=== PATIENT | female | born 1955 | race Caucasian/White ===

== ENCOUNTER 2025-02-09 08:08 | Inpatient (IN) ==
--- NOTE | 2025-01-23 11:18 | PAT Medication Instructions ---
Medication Instructions Date of Service January 23, 2025 Home Medications coenzyme Q10 100 mg capsule (CoQ-10) 100 mg PO QAM ascorbic acid (vitamin C) 1,000 mg tablet (Vitamin C) 1 g PO QAM biotin 5,000 mcg disintegrating tablet 5,000 mcg PO QAM calcium carbonate 1,000 mg PO QAM cholecalciferol (vitamin D3) 125 mcg (5,000 unit) tablet (Vitamin D3) 5,000 unit PO QAM magnesium 250 mg tablet 400 mg PO QAM vitamin K2 100 mcg capsule 100 mcg PO QAM zinc 50 mg tablet 50 mg PO QAM Lactobacillus acidophilus 10 billion cell capsule (Probiotic) 10,000 mmu cells PO DAILY Igor Support 1 tab PO DAILY levothyroxine 100 mcg tablet 100 mcg PO QAM fzyeuoxq-[id number] 18 mg-FA 400 mcg-calcium 500 mg-vit K 50 mcg tablet (Women's Multivitamin) 1 tab PO QAM omega 7-txd-gzk-fish oil 900 mg-1,400 mg capsule,delayed release 1 cap PO QAM spironolactone 25 mg tablet 25 mg PO QAM STOP taking 2 weeks before surgery (or as soon as possible if surgery is within 2 weeks) coenzyme Q10 100 mg capsule (CoQ-10) 100 mg PO QAM omega 7-vho-cfh-fish oil 900 mg-1,400 mg capsule,delayed release 1 cap PO QAM Igor Support 1 tab PO DAILY vitamin K2 100 mcg capsule 100 mcg PO QAM biotin 5,000 mcg disintegrating tablet 5,000 mcg PO QAM DO NOT take the morning of surgery ascorbic acid (vitamin C) 1,000 mg tablet (Vitamin C) 1 g PO QAM calcium carbonate 1,000 mg PO QAM cholecalciferol (vitamin D3) 125 mcg (5,000 unit) tablet (Vitamin D3) 5,000 unit PO QAM magnesium 250 mg tablet 400 mg PO QAM zinc 50 mg tablet 50 mg PO QAM Lactobacillus acidophilus 10 billion cell capsule (Probiotic) 10,000 mmu cells PO DAILY wiyabgqz-euf-annp 18 mg-FA 400 mcg-calcium 500 mg-vit K 50 mcg tablet (Women's Multivitamin) 1 tab PO QAM spironolactone 25 mg tablet 25 mg PO QAM Take morning of surgery With a small sip of water, OTHERWISE NOTHING TO EAT OR DRINK AFTER MIDNIGHT: levothyroxine 100 mcg tablet 100 mcg PO QAM Other Notes If you have any questions please call us at [phone] or [phone] or [phone] or [phone]
--- NOTE | 2025-01-25 12:28 | Anesthesiology Consultation ---
Date of Service January 25, 2025 Assessment & Plan (1) Encounter for pre-operative examination: Chart Review Chart Review: Acceptable Risk for Surgery (pending surgeon ordered PCP clearance and cardio optimization visit ) and Patient seen in Pre Admission Testing - Awaiting PCP clearance 01/31/25 (Renée COKER-- [facility]) - Awaiting cardio optimization office visit (Citlalli Novak [facility] Cardio)- scheduled 02/03/25 845 Pt currently scheduled as 23 hours observation. If surgeon decides to change patient to Same Day Joint, patient would be acceptable risk for VERITO, pending patient is motivated, has good support and surgeon's office completes Same Day Joint Program preop requirements. Per PAT appt on 01/25/25, no recent illness/disease exposures, illness related symptoms, or recent illness/disease positive tests. Will leave to surgeon's discretion if preop Covid testing needed Hysteroscopy, D&C 10/17/22= Done under [place] with LMA #4 x 1 attempt. Atraumatic/good seal Consults Requested cardiac (due to abnormal EKG ) Teaching & Discussion Pre-Anesthesia Teaching/Discussion Notes: Instructed NPO after midnight before surgery,except medications with 15 cc of water. Medication instructions provided according to the PAT guidelines. History Surgery Operation Date: 02/09/25 09:10 Proposed Procedures p Right Total Hip Arthroplasty - Nahun Sauer MD Height/Weight Height: 5 ft 8 in Weight: 68.3 kg Allergies Allergy/AdvReac Type Severity Reaction Status Date / Time nickel Allergy Unknown see below Verified 01/25/25 12:20 doxycycline AdvReac Mild Gastrointestinal Verified 01/19/25 14:05 Upset Additional Notes: Surgeon's office notified of nickel allergy Medications Home Medications Medication Instructions Recorded Confirmed Last Taken coenzyme Q10 100 mg capsule 100 mg PO QAM 07/19/19 01/19/25 10/03/22 12:00 (CoQ-10) ascorbic acid (vitamin C) 1,000 mg 1 g PO QAM 10/03/22 01/19/25 10/03/22 09:00 tablet (Vitamin C) biotin 5,000 mcg disintegrating 5,000 mcg PO QAM 10/03/22 01/19/25 10/03/22 09:00 tablet calcium carbonate 1,000 mg PO QAM 10/03/22 01/19/25 10/03/22 16:00 cholecalciferol (vitamin D3) 125 5,000 unit PO QAM 10/03/22 01/19/25 10/03/22 09:00 mcg (5,000 unit) tablet (Vitamin D3) magnesium 250 mg tablet 400 mg PO QAM 10/03/22 01/19/25 10/03/22 10:00 vitamin K2 100 mcg capsule 100 mcg PO QAM 10/03/22 01/19/25 10/03/22 16:00 zinc 50 mg tablet 50 mg PO QAM 10/03/22 01/19/25 10/03/22 09:00 Lactobacillus acidophilus 10 10,000 mmu cells PO DAILY 01/19/25 01/19/25 Unknown billion cell capsule (Probiotic) Igor Support 1 tab PO DAILY 01/19/25 01/19/25 Unknown levothyroxine 100 mcg tablet 100 mcg PO QAM 01/19/25 01/19/25 Unknown uulyiqow-mbv-yxwe 18 mg-FA 400 1 tab PO QAM 01/19/25 01/19/25 Unknown mcg-calcium 500 mg-vit K 50 mcg tablet (Women's Multivitamin) omega 6-hsw-lqe-fish oil 900 1 cap PO QAM 01/19/25 01/19/25 Unknown mg-1,400 mg capsule,delayed release spironolactone 25 mg tablet 25 mg PO QAM 01/19/25 01/19/25 Unknown Past Medical History Medical History Chronic neck pain Intermittent/very occ- loss of lordosis curve of neck due to previous injury Glaucoma - had sx for (11/2024) > considered to be chronic but eye pressures have been stable History of COVID-19 03/30/2022-- (patient does not feel she had Covid) diagnosed @ [facility]--mild symptoms, no symptoms now Hyperparathyroidism s/p surgical intervention in [place] Hypothyroid Osteoarthritis Osteopenia Exercise / Class Metabolic Activity II 4-5 Yardwork/Stairs/Walk up hill (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 ) Past Family History Family History Father Lymphoma Other No family history of adverse response to anesthesia Denies family history of Ovarian cancer Breast cancer Past Surgical History Surgical History H/O breast biopsy 2022 > benign History of appendectomy History of bone graft left lower side of mouth History of breast augmentation placed 2006/removed 2016 History of colonoscopy History of dental surgery multiple times--nothing removable History of gynecological procedure polyps removed History of left hip replacement History of parathyroid surgery benign nodules removed History of [place] cell [place] [facility] [place] to right hip/bilt shoulders/neck Hx of cataract surgery bilat Hx of eye surgery TISHA sx for glaucoma Past Anesthesia History No Hx of Anesthesia Complications and No Family Hx of Anesthesia Complications (Father family history unknown ) History of PONV No Hx of PONV and No Hx of Motion Sickness Social History Smoking Status: Former smoker Do You Dip or Chew Tobacco: No Smoking End Date: 1997 (smoked x 20 years) Hx Alcohol Use: Yes alcohol intake frequency: holidays/special occasions only Hx Substance Use: No substance use type: does not use Review of Systems Patient denies chest pain, shortness of breath, dyspnea on exertion, reflux, cough, wheezing, palpitations. No hx of seizures, stroke, MT, apnea/snoring. No hx of blood clots or blood transfusions Physical Exam Vital Signs VITALS BP 105/72 P 62 TEMP 97.6 SP02 94% RESP 16 Constitutional no acute distress ENMT Mouth: no TMJ clicking Thyromental Distance: < 3.5 Finger Breadths (3.0) Mallampati Class: I Upper partial denture Permanent bridge to bottom front Crowns to bottom teeth Neck + limited neck extension (mild) Respiratory normal respiratory effort; no respiratory distress Auscultation: lungs clear to auscultation bilaterally; no wheezes Cardiovascular Rate/Rhythm: regular rate and regular rhythm Heart Sounds: no murmur Vessels: no carotid bruit Musculoskeletal Spine: no pain with cervical ROM Extremities: extremities normal to inspection Psychiatric Orientation: alert Lab Results Anesthesia Preop Results Results Anesthesia Widget: WBC 9.67 K/ul (4.8-10.8) 01/25/25 Hgb 14.9 g/dl (12.0-16.0) 01/25/25 Hct 44.7 % (37.0-47.0) 01/25/25 Plt 417 K/uL (130-400) H 01/25/25 Na 140 mmol/L (136-145) 01/25/25 K 4.5 mmol/L (3.5-5.1) 01/25/25 Cl 105 mmol/L (98-107) 01/25/25 CO2 30 mmol/L (21-32) 01/25/25 BUN 17 mg/dl (6-23) 01/25/25 Creat 0.75 mg/dl (0.6-1.2) 01/25/25 Glucose Level 85 mg/dl (70-99(Fasting)) 01/25/25 PT 10.1 Seconds (9.0-12.0) 01/25/25 PTT 29 Seconds (21-31) 01/25/25 INR 0.9 (0.9-1.1) 01/25/25 Urine Color Yellow 01/25/25 Urine Appearance Cloudy (Clear) A 01/25/25 Urine pH 7.5 (4.5-7.5) 01/25/25 Urine Specific [place] 1.014 (1.000-1.030) 01/25/25 Urine Protein Negative (Negative) 01/25/25 Urine Glucose (UA) Negative (Negative) 01/25/25 Urine Ketones Negative (Negative) 01/25/25 Urine Blood Negative (Negative) 01/25/25 Urine Nitrite Negative (Negative) 01/25/25 Urine Bilirubin Negative (Negative) 01/25/25 Urine Urobilinogen Negative (Negative) 01/25/25 Urine Leukocyte Esterase 2+ (Negative) H 01/25/25 Urine WBC (Auto) 6-10 /hpf (0-5) H 01/25/25 Urine RBC (Auto) 6-10 /hpf (0-2) H 01/25/25 Urine Hyaline Casts (Auto) 0-2 /lpf (0-2) 01/25/25 Urine Epithelial Cells (Auto) 0-2 /hpf (0-2) 01/25/25 Urine Bacteria (Auto) None Seen (None Seen) 01/25/25 Blood Type O Positive 01/25/25 Antibody Screen NEGATIVE 01/25/25 Testing Electrocardiogram Date: 01/25/25 Findings: + SB @ (52bpm) Nonspecific T wave abnormality When compared to EKG from October 17, 2022- vent rate has decreased by 37bpm, T wave inversion now evident in anterior leads per cardio ( Discussed preop EKG with Dr Kelly- recommended patient have cardiac evaluation)
[~2025-02-09 08:08] MED LIST: BUPIVACAINE 0.5 % 5 MG/1 ML PF 10ML VIAL ONE
[2025-02-09] MEDS: LR 60ML/HR IV SCH (08:50)
[2025-02-09] MEDS: LR 500ML BOLUS, THEN 15ML/HR IV SCH (08:50)
[2025-02-09] MEDS: ACETAMINOPHEN 500 MG TAB PO SCH ×2 (08:52→14:17)
[2025-02-09] MEDS: dexAMETHasone**PF** 10 MG/ML VIAL IV SCH (08:52)
[2025-02-09] MEDS: FAMOTIDINE 20 MG TAB PO SCH (08:52)
[2025-02-09] MEDS: CeleBREX 200 MG CAP PO SCH (08:52)
[2025-02-09] MEDS ORDERED: PROPOFOL IV EMULSION 10 MG/ML 100 ML VIAL IV ONE (09:43)
[2025-02-09] MEDS ORDERED: MIDAZOLAM HCL 1 MG/ML 2ML VIAL ONE (09:48)
[2025-02-09] MEDS ORDERED: LIDOCAINE 2% 2 ML VIAL/AMP(20MG/ML) INFIL ONE (09:49)
--- NOTE | 2025-02-09 10:13 | History & Physical Bridge Note ---
Date of Service February 09, 2025 History & Physical Bridge Note I have examined the patient, reviewed the History & Physical and in the interval since the performance of the History & Physical I have noted the following changes of clinical significance: no changes noted
[2025-02-09] MEDS: TRANEXAMIC ACID 1,000 MG **IV Pre-op IV SCH (10:15)
[2025-02-09] MEDS ORDERED: ePHEDrine sulfate 50 MG/5 ML SYR ONE (11:00)
[2025-02-09] MEDS: ORTHO JOINT ANESTHETIC ONE (11:03)
[2025-02-09] MEDS ORDERED: PHENYLEPHRINE 100MCG/ML 5ML SYR ONE ×2 (11:04→11:51)
[2025-02-09] MEDS ORDERED: ONDANSETRON INJ 2 MG/ML 2 ML VIAL ONE (11:04)
[2025-02-09] MEDS: ROPIV 0.5% 246mg, Ketorolac 30mg, EPINEPHrine 0.5mg in NSS INFIL SCH (11:40)
--- NOTE | 2025-02-09 12:12 | Operative Report ---
Post Operative Report Pre & Post Diagnosis Operation Date: 02/09/25 10:00 Pre-Op Diagnosis: Osteoarthritis Hip Right Post-Op Diagnosis: Osteoarthritis Hip Right I identified the patient and participated in the time-out.: Yes Procedure Operation Date: 02/09/25 10:00 Actual Procedures p Right Total Hip Arthroplasty(Right) - Nahun Sauer MD Surgeon Nahun Sauer MD Recreational Leader Ann Marie Mack PA-Kacy Estimated Blood Loss 100 Findings Consistent with Post-Op Diagnosis Specimens femoral head Description of Procedure I was present during the entire case assisting with positioning, prepping, draping, wound retraction, wound closure, dressing and abduction pillow placement. No fellow present. Please see Dr. Sauer procedure note for specifics of the case. I attest to the content of the Intraoperative Record and any orders documented therein. Any exceptions are noted below.
[2025-02-09] MEDS ORDERED: METOCLOPRAMIDE HCL INJ 5 MG/ML 2 ML VIAL IV PRN (12:15)
[2025-02-09] MEDS ORDERED: ALUMINUM/MAGNESIUM SUSP 30 ML UDC PO PRN (12:15)
[2025-02-09] MEDS ORDERED: NALOXONE HCL 0.4 MG/1 ML VIAL/CARP IV PRN (12:15)
[2025-02-09] MEDS ORDERED: diphenhydrAMINE 50 MG/ML VIAL IV PRN (12:15)
[2025-02-09] MEDS ORDERED: HYDROmorphone INJ 0.5 MG/0.5 ML SYR IV PRN (12:15)
[2025-02-09] MEDS ORDERED: MAGNESIUM HYDROXIDE SUSP 30 ML UDC PO PRN (12:15)
--- NOTE | 2025-02-09 12:15 | Operative Report ---
Post Operative Report Pre & Post Diagnosis Operation Date: 02/09/25 10:00 Pre-Op Diagnosis: Osteoarthritis Hip Right Post-Op Diagnosis: Osteoarthritis Hip Right I identified the patient and participated in the time-out.: Yes Procedure Operation Date: 02/09/25 10:00 Actual Procedures p Right Total Hip Arthroplasty(Right) - Nahun Sauer MD Surgeon Nahun Sauer MD Funeral Professional BLAIR Mack PA-C. No resident or fellow was available to assist. Estimated Blood Loss 100 Findings Consistent with Post-Op Diagnosis Specimens Right femoral head Anesthesia Type Spinal MAC Complications none Disposition Disposition: Recovery Room Indications 69-year-old female, with right hip osteoarthritis refractory to conservative management. Patient is an active yoga enthusiast but is having difficulty doing this as well as her activities of daily living. She has previously undergone a left total hip arthroplasty at an outside hospital with good result. X-rays demonstrate joint space narrowing subchondral sclerosis and marginal osteophy blanca. She was noted to have osteoporosis which increases the risk of fracture. Finally, the right leg was noted preoperatively to be a little longer than the left leg. I had a long discussion with the patient about the risks and benefits of surgery, alternatives to surgery, and expected outcomes. She understood that we would try to keep her right leg around the same length as it was preoperativ kaleb she is since she had no complaints with her current leg lengths. She also understands that certain yoga positions place her at increased risk of postoperative hip dislocation. After reviewing all of her options she elected to proceed with surgery. All questions were answered. Informed consent was signed. Description of Procedure Patient was identified in the preoperative holding area where the surgical site, right hip, was marked. A spinal anesthetic was placed, then the patient was brought back to the main operating room, placed in the operating table and moved into the lateral decubitus position. Axillary roll was placed. All bony prominences were padded. Perioperative antibiotics and tranexamic acid 1 gram IV were administered. The operative extremity was prepped and draped in the normal sterile fashion. Prior to incision a multidisciplinary timeout was called. All in the room were in agreement. We began by making an incision for a posterior approach to the hip. We dissected down through subcutaneous tissues to the level of the fascia. The fascia was incised in line with the incision. Charnley bow was placed. Fatty tissue was reflected posteriorly off the back of the greater trochanter to expose the piriformis and short external rotators of the hip. Quadratus femoris was taken off the femur subperiosteally. The piriformis and short external rotators were dissected off the posterior aspect of the hip. A box cut was made in the capsule. Inferior hip capsule was released off the femur. The femoral head was dislocated. The distance between the center of the head and a Bovie kelli placed on the intertrochanteric line was measured at 48 mm to determine her wilton offset. The femoral neck cut was made at our preoperative template. The acetabulum was then exposed. The labrum was sharply excised. Contents of the cotyloid fossa were removed with electrocautery. We then began reaming at a size 8 mm less than our preoperative template. We reamed up by 1 [address] the way up to a size 56 mm cup. This gave us good bleeding cancellus bone circumferentially. The acetabulum was then irrigated out and dried. The real [place] Gription cup was then impacted down into position with 45 degrees of lateral opening and 25 degrees of anteversion. Two cancellous bone screws were placed up into the ilium. Excellent fixation was obtained. A trial liner for a 36 mm femoral head was then placed. Next we turned our attention to the femur. The lateral neck was removed with a box osteotome. Intramedullary guide was used to establish the intramedullary canal. We then broached all the way up to a size 6. We began trialing with a standard offset neck and a +5 head. Distance between the Bovie kelli and the center of the trial measured 48 indicating anatomic sabianist of her offset. Hip was reduced. Leg length was the same as it was preoperatively. The hip was stable in extension and external rotation, and stable in the sleeper position. At 90 degrees of hip flexion the hip could be internally rotated 40 degrees before levering out of the cup. Because of the patient's yoga activities I wanted to get better stability to decrease her risk of postoperative dislocation. Therefore I elected to use a dual mobility component. The hip was dislocated and the femoral trial was removed. The acetabulum was re-exposed, and the trial liner was removed. [place] hole eliminator screw was placed. The metal liner for the dual mobility construct was opened up and impacted into the acetabulum. Excellent fixation was obtained. The femur was re-exposed. The femoral canal was irrigated and dried. The real Actis femoral stem was opened up. This was impacted down into position. The bipolar femoral head was opened up, assembled on the back table, then gently impacted down onto the trunnion. The hip was atraumatically reduced. Another 1 gram of IV tranexamic acid was started prior to closure. The wound was irrigated out with sterile Betadine solution. The periarticular injection cocktail was then placed. The short external rotators, piriformis, and posterior capsule were repaired through drill holes in the greater trochanter using #2 Vicryl. The fascia was run with a looped #1 PDS. The subcutaneous layer was closed with #1 PDS. The dermal layer was closed with 2-0 Vicryl. Zip line was used for the skin followed by a Silverlon dressing. A compressive dressing was then placed. The patient was then rolled supine. Leg lengths were rechecked and were symmetric. An abduction pillow was placed. Sedation was lifted and the patient was transferred to the recovery room in stable condition. Summary of implants: Depuy [place] Gription Acetabular Shell Sector Cup, 56 mm outer diameter [place] Cancellous bone screws, 6.5 x 35 and 25 mm [place] hole eliminator [place] dual mobility liner 56/49 DePuy Actis collared cementless Femoral stem, 12/14 taper, size 6 standard offset 49/28 by mentum Ultrex polyethylene outer dual mobility head 28 mm ceramic femoral head with +5 offset Postoperative course: Patient will be admitted overnight from the recovery room. Patient will be weightbearing as tolerated with posterior hip precautions. Aspirin for DVT prophylaxis I attest to the content of the Intraoperative Record and any orders documented therein. Any exceptions are noted below.
--- NOTE | 2025-02-09 12:37 | XRay Report ---
XR pelvis 1-2V routine CLINICAL HISTORY: In PACU - Post Surgical COMPARISON: 01/25/2025 FINDINGS: Bilateral hip prostheses show no hardware complication. There is expected soft tissue gas on the right. IMPRESSION: Unremarkable postoperative exam. ACT 112: Negative or not required by law. Electronically signed by: Tobi Orlando M.D. 02/09/2025 12:36 PM
[2025-02-09] MEDS ORDERED: ATROPINE SULFATE 0.1 MG/ML 10ML SYR IV PRN (12:50)
--- NOTE | 2025-02-09 13:22 | Anesthesiology Progress Note ---
Date of Service February 09, 2025 Anesthesia Post Procedure Vital Signs Vital Signs: Temp Pulse Resp BP Pulse Ox O2 Del Method 02/09/25 13:10 93 H 20 95/63 L 94 Room Air 02/09/25 13:00 95 H 18 101/64 94 Room Air 02/09/25 12:50 36.3 C L 95 H 20 112/65 95 Room Air 02/09/25 12:40 90 21 112/65 91 Room Air 02/09/25 12:30 93 H 20 102/62 94 Room Air 02/09/25 12:20 97 H 25 H 89/63 L 95 Room Air 02/09/25 12:12 36.0 C L 100 H 22 95/65 L 95 Room Air 02/09/25 08:32 36.6 C 83 20 107/71 93 Room Air Pain Intensity Right Hip: Pain Intensity: 3 Transfer of Care Handoff Completed per policy Notes Mental Status: alert / awake / arousable Patient Amnestic to Procedure: Yes Nausea / Vomiting: adequately controlled Pain: adequately controlled Airway Patency, RR, SpO2: stable & adequate BP & HR: stable & adequate Hydration State: stable & adequate Anesthetic Complications: no major complications apparent
--- NOTE | 2025-02-09 13:23 | Anesthesiology Progress Note ---
Date of Service February 09, 2025 Anesthesia Post Procedure Vital Signs Vital Signs: Temp Pulse Resp BP Pulse Ox O2 Del Method 02/09/25 13:20 87 16 103/55 L 93 Room Air 02/09/25 13:10 93 H 20 95/63 L 94 Room Air 02/09/25 13:00 95 H 18 101/64 94 Room Air 02/09/25 12:50 36.3 C L 95 H 20 112/65 95 Room Air 02/09/25 12:40 90 21 112/65 91 Room Air 02/09/25 12:30 93 H 20 102/62 94 Room Air 02/09/25 12:20 97 H 25 H 89/63 L 95 Room Air 02/09/25 12:12 36.0 C L 100 H 22 95/65 L 95 Room Air 02/09/25 08:32 36.6 C 83 20 107/71 93 Room Air Pain Intensity Right Hip: Pain Intensity: 3 Transfer of Care Handoff Completed per policy Notes Mental Status: alert / awake / arousable Patient Amnestic to Procedure: Yes Nausea / Vomiting: adequately controlled Pain: adequately controlled Airway Patency, RR, SpO2: stable & adequate BP & HR: stable & adequate Hydration State: stable & adequate Neuraxial Anesthesia: was administered and sensory block is resolving Anesthetic Complications: no major complications apparent
[2025-02-09] MEDS: SODIUM CHLORIDE 0.9% 1,000 ML IV SCH (13:45)
[2025-02-09] MEDS: KETOROLAC TROMETHAMINE 15 MG/ML VIAL IV SCH (14:17)
[2025-02-09] MEDS ORDERED: Scopolamine CHECK PATCH PLACEMENT SCH (16:00)
[2025-02-09] MEDS: SENNA 8.6 MG TAB PO SCH (20:56)
[2025-02-09] MEDS: DOCUSATE SODIUM 100 MG CAP PO SCH (20:56)
[2025-02-09] MEDS: ONDANSETRON INJ 2 MG/ML 2 ML VIAL IV PRN (21:40)
[2025-02-09 22:59] VITALS: RESP 16
[2025-02-10] MEDS: LEVOTHYROXINE SODIUM 100 MCG TABLET PO SCH (05:49)
[2025-02-10 06:08] LABS: Hematocrit (blood only) 34.8 % (37.0-47.0); Hemoglobin 11.6 g/dl (12.0-16.0); Immature Granulocytes # (auto) 0.07 K/uL (0.01-0.20); Immature Granulocytes % (auto) 0.5 %; Mean Corpuscular Hemoglobin 30.4 pg (25.0-34.0); Mean Corpuscular Volume 91.3 fL (80.0-100.0); Platelet Count 325 K/uL (130-400); RDW Standard Deviation 43.8 fL (36.4-46.3); Red Blood Count 3.81 M/uL (4.20-5.40); White Blood Count 12.88 K/ul (4.8-10.8)
[2025-02-10 06:25] LABS: Anion Gap 8.0 (3-11); Blood Urea Nitrogen 18.0 mg/dl (6-23); Calcium 9.2 mg/dl (8.6-10.3); Carbon Dioxide 24.0 mmol/L (21-32); Chloride 107.0 mmol/L (98-107); Creatinine Clr Calc Pharmacy 65.3 ml/min; Glucose 107.0 mg/dl (70-99(Fasting)); Potassium 4.2 mmol/L (3.5-5.1); Sodium 139.0 mmol/L (136-145)
[2025-02-10] MEDS: dexAMETHasone 10 MG in SYRINGE 0 ML IV SCH (08:08)
[2025-02-10] MEDS: ADVANCED PROBIOTIC 625 MG CAPSULE PO SCH (08:10)
[2025-02-10] MEDS: CALCIUM CARBONATE 1250MG TAB PO SCH (08:10)
[2025-02-10] MEDS: ZINC SULFATE 220 MG CAPSULE PO SCH (08:11)
[2025-02-10] MEDS: CEROVITE ADV FORMULA TAB PO SCH (08:11)
[2025-02-10] MEDS: CHOLECALCIFEROL 125 MCG (5,000 UNITS) TAB PO SCH (08:11)
[2025-02-10] MEDS: OMEGA-3 (PURIFIED FISH OIL) 1 GM CAP PO SCH (08:11)
[2025-02-10] MEDS: ASCORBIC ACID 500 MG TAB PO SCH (08:11)
[2025-02-10] MEDS: MULTIVITAMIN TAB PO SCH (08:11)
[2025-02-10] MEDS: ASPIRIN 81 MG ECTAB PO SCH (08:12)
[2025-02-10] MEDS: SPIRONOLACTONE 25 MG TAB PO SCH (08:12)
[2025-02-10] MEDS: MAGNESIUM OXIDE 400 MG TAB PO SCH (08:12)
[2025-02-10] MEDS ORDERED: [UNRECOGNIZED DRUG - OTHER] PO SCH (09:00)
[2025-02-10] MEDS ORDERED: VITAMIN A PO SCH (09:00)
[2025-02-10] MEDS ORDERED: NON-FORMULARY MEDICATION (Vitamin K2 100 mcg Capsule) PO SCH (09:00)
--- NOTE | 2025-02-10 10:03 | Orthopedic Progress Note ---
Date of Service February 10, 2025 Assessment & Plan (1) S/P total hip arthroplasty: Plan: Total hip precautions reviewed Weightbearing as tolerated with walker assistance Abduction pillow use x 6 weeks Ice with easy wrap Keep Silverlon dressing in place Pain control with p.o. medication DVT prophylaxis with aspirin and YOANNA stockings PT/OT Plan is to discharge home after lunch today with outpatient physical therapy beginning on Thursday Follow-up at [facility] orthopedics as previously scheduled With questions contact our clinic at [phone] Admission and Anticipated Discharge Date Admission Date: February 09, 2025 Subjective This 69-year-old female is day 1 status post right total hip arthroplasty. Patient states she is doing very well. She states her pain is effectively controlled with the p.o. pain medication. She states that she does get a little discomfort when she gets up to use the restroom but while laying in bed has no pain. Patient denies chest pain, shortness of breath, fever, chills, sweats, nausea, vomiting, diarrhea, difficulty voiding or numbness or tingling in the right lower extremity. She states that she is doing outpatient physical therapy starting Thursday in our clinic. Review of Systems Review of Systems: All systems reviewed & are unremarkable except as noted in Subjective Physical Exam Physical Exam: Right hip: Outer dressing was removed. Silverlon is clean dry and intact and left in place. Patient is able to perform active straight leg raise test. She is able to actively dorsi and plantarflex her foot without issue. Her quad strength is 3+ out of 5. She tolerates passive hip flexion beyond 80 degrees. She does feel slight pulling sensation with internal rotation but no discomfort with passive external rotation. Logroll test negative. Patient is neurovascularly intact in the right lower extremity and easily able to transition from a seated to a standing position with the assistance of her walker. Results & Data Vital Signs (Past 12 Hours) Vital Signs Temp Pulse Pulse Resp BP Pulse Ox O2 Del Method 02/10/25 07:41 36.4 C L 78 16 112/71 98 Room Air 02/10/25 02:54 36.6 C 74 16 114/71 95 Room Air 02/09/25 22:58 36.4 C L 89 16 103/67 96 Room Air Diagnostic Findings Laboratory Results WBC 12.88 K/ul (4.8-10.8) H 02/10/25 05:29 RBC 3.81 M/uL (4.20-5.40) L 02/10/25 05:29 Hgb 11.6 g/dl (12.0-16.0) L 02/10/25 05: Hct 34.8 % (37.0-47.0) L 02/10/25 05: MCV 91.3 fL (80.0-100.0) 02/10/25 05: MCH 30.4 pg (25.0-34.0) 02/10/25 05: MCHC 33.3 g/dL (32.0-36.0) 02/10/25 05: RDW Std Deviation 43.8 fL (36.4-46.3) 02/10/25 05: RDW Coeff of Cj 13.2 % (11.5-14.5) 02/10/25 05: Plt Count 325 K/uL (130-400) 02/10/25 05: MPV 9.7 fL (9.4-12.4) 02/10/25 05:29 Immature Gran % (Auto) 0.5 % 02/10/25 05:29 Neut % (Auto) 75.5 % 02/10/25 05:29 Lymph % (Auto) 14.8 % 02/10/25 05:29 Hudspeth % (Auto) 8.9 % 02/10/25 05:29 Eos % (Auto) 0.1 % 02/10/25 05:29 Baso % (Auto) 0.2 % 02/10/25 05:29 Neut # (Auto) 9.73 K/uL (1.40-6.50) H 02/10/25 05:29 Lymph # (Auto) 1.90 K/uL (1.20-3.40) 02/10/25 05:29 Hudspeth # (Auto) 1.14 K/uL (0.11-0.59) H 02/10/25 05:29 Eos # (Auto) 0.01 K/uL (0.00-0.50) 02/10/25 05:29 Baso # (Auto) 0.03 K/uL (0.00-0.20) 02/10/25 05:29 Immature Gran # (Auto) 0.07 K/uL (0.01-0.20) 02/10/25 05:29 Sodium 139 mmol/L (136-145) 02/10/25 05:29 Potassium 4.2 mmol/L (3.5-5.1) 02/10/25 05:29 Chloride 107 mmol/L (98-107) 02/10/25 05:29 Carbon Dioxide 24 mmol/L (21-32) 02/10/25 05:29 Anion Gap 8 (3-11) 02/10/25 05:29 BUN 18 mg/dl (6-23) 02/10/25 05:29 Creatinine 0.82 mg/dl (0.6-1.2) 02/10/25 05:29 Est Cr Clr Drug Dosing 65.3 ml/min 02/10/25 05:29 eGFR 77.38 02/10/25 05:29 BUN/Creatinine Ratio 22.0 (10-20) H 02/10/25 05:29 Glucose 107 mg/dl (70-99(Fasting)) H 02/10/25 05:29 Calcium 9.2 mg/dl (8.6-10.3) 02/10/25 05:29 Impressions Pelvis X-Ray 02/09/25 12:15 XR pelvis 1-2V routine CLINICAL HISTORY: In PACU - Post Surgical COMPARISON: 01/25/2025 FINDINGS: Bilateral hip prostheses show no hardware complication. There is expected soft tissue gas on the right. IMPRESSION: Unremarkable postoperative exam. ACT 112: Negative or not required by law. Electronically signed by: Tobi Orlando M.D. 02/09/2025 12:36 PM
--- NOTE | 2025-02-10 10:10 | Discharge Summary ---
Date of Service February 10, 2025 Admission HPI Per Admitting Provider History of Present Illness Patient is a 69 year-old female presenting today for their pre-operative history and physical examination for the above-noted surgery with Dr Sauer. She has a longstanding history of hip arthritis. She is a former professional dancer and biker. She is status post left VERITO in 2007 and is pleased with her results from that. Her left hip has progressively gotten worse over time. She has difficulty walking and getting in and out of chairs. Her pain is starting to affect her sleep. She has pain with steps and notes decreased mobility during yoga. She mainly takes Aleve right now for pain control. She has elected to proceed with a right total hip arthroplasty. Admission Exam Per Admitting Provider Physical Exam Vitals & Measurements T: 36.3 C RR: 18 BP: 116/62 SpO2: 98% HT: 170.5 cm WT: 68.1 kg WT: 68.100 kg (Dosing) BMI: 23.43 General: Pt is well nourished, seated on the exam table AA&O, in NAD, calm and cooperative during exam HENT: Nontraumatic, no gross deformity, hearing and vision grossly in-tact, PERRL Heart: +S1, +S2, RRR, no murmurs appreciated Lungs: CTABL, no wheezing appreciated Right hip: ROM: Hip flexion 110/ External rotation 45 / Internal rotation -15 Slight hip flexion contracture + Stinchfield test + RACHNA test with knee 30 inches off table - Tenderness over trochanteric bursa Principal Diagnosis Right hip osteoarthritis Discharge Exam Right hip: Outer dressing was removed. Silverlon is clean dry and intact and left in place. Patient is able to perform active straight leg raise test. She is able to actively dorsi and plantarflex her foot without issue. Her quad strength is 3+ out of 5. She tolerates passive hip flexion beyond 80 degrees. She does feel slight pulling sensation with internal rotation but no discomfort with passive external rotation. Logroll test negative. Patient is neurovascularly intact in the right lower extremity and easily able to transition from a seated to a standing position with the assistance of her walker. Discharge Data Allergies Allergy/AdvReac Type Severity Reaction Status Date / Time nickel Allergy Unknown see below Verified 02/09/25 08:28 doxycycline AdvReac Mild Gastrointestinal Verified 02/09/25 08:28 Upset Procedures Performed Operation Date: 02/09/25 10:00 Actual Procedures p Right Total Hip Arthroplasty(Right) - Nahun Suaer MD Hospital Course (1) S/P total hip arthroplasty: Patient had an uneventful overnight stay following right total hip arthroplasty. She is very pleased with the results of the surgery. She states that her pain is adequately controlled with the p.o. pain medication. She plans on being on aspirin twice daily for blood clot prevention for the first month postop. She states that she is doing outpatient physical therapy in our clinic beginning on Thursday. Total hip precautions reviewed Weightbearing as tolerated with walker assistance Abduction pillow use x 6 weeks Ice with easy wrap Keep Silverlon dressing in place Pain control with p.o. medication DVT prophylaxis with aspirin and YOANNA stockings PT/OT Plan is to discharge home after lunch today with outpatient physical therapy beginning on Thursday Follow-up at [facility] orthopedics as previously scheduled With questions contact our clinic at [phone] Total Time Total Time Spent Total Time Spent (In Minutes): 25 mins Discharge Plan Discharge Items Patient Disposition: Home - Self-Care Reason For Visit: Osteoarthritis Hip Right Discharge Diagnosis: s/p Right total hip arthroplasty Activity: As commented below Lifting: None Bathing: Keep incision dry Bathing Comment: May shower tomorrow Sexual Activity: Wait until after follow-up appointment Exercise/Sports: Wait until after follow-up appointment Driving/Machine Use: No driving until cleared by commercial credit specialist Weightbearing: Right weightbearing Weightbearing Comment: as tolerated with walker assistance Non-emergency contact: Surgeon Call non-emergency contact if: you have any medication questions, your pain is not controlled, your temperature is above 101.5, your wound has increased drainage and your wound pain has increased Follow-up/Referrals: Jaclyn Aponte PA-C [Primary Care Provider] - Diet: Regular Addtl Attending Provider Instructions: Post-operative Instructions Dear Patient and Family/Friends, Before you are discharged from the hospital, it is important to know what to expect when you get home after surgery. To that end, we have created this sheet of discharge instructions which covers many commonly asked questions. Make sure you go through this sheet in its entirety with your nurse before you are discharged. Please note that we will go over the specifics of your surgery and recovery when you return for your first post-operative visit. Sincerely, Dr. Sauer Medications 1. Tramadol 50 mg: Take 1 to 2 tablets every 4-6 hours as needed for postoperative pain control. A prescription for this medication will be sent to your pharmacy. 2. Diclofenac sodium 75 mg: Take 1 tablet twice daily for 30 days postoperatively for pain and inflammation relief. This will be sent to your pharmacy with 1 refill 3. Aspirin 81 mg: Take 1 tablet twice daily for 30 days postoperatively for blood clot prevention. Please purchase this medication. 4. Extra strength Tylenol 500 mg: Take 2 tablets every 6-8 hours as needed for additional supplemental pain control. Please purchase this medication. Pain Expect to be in a fair amount of pain after surgery. Remember, our goal is not to eliminate your pain, but to make it tolerable. It is a good idea to stay ahead of your pain by taking the medications you were prescribed once you get home. Typically, the pain starts improving 3-7 days after surgery. You should start weaning off the narcotic pain medication (oxycodone, hydrocodone, hydromorphone, morphine) as soon as your pain improves. Please call our office if your pain is not adequately controlled. Ice Ice your operative site at least 5 times a day for 15-30 minutes at a time. Make sure you have a thin cloth between the ice or cooling unit and your skin to prevent smith bite. This is especially important if you received a nerve block. Continue icing your operative site for the first 5-7 days after surgery, then as needed. Diet/Nausea/Vomiting Start by drinking clear liquids and eating crackers. If you can tolerate this, then you may resume your normal diet. If you feel nauseated or vomit, take Zofran/ondansetron (if prescribed). Please call our office if you have intractable nausea or vomiting, or, if after hours, you may go to the Emergency Room for help. Constipation Constipation is a common side effect of narcotic pain medication. If you have not had a bowel movement within 2 days after surgery, we recommend purchasing an over the counter laxative such as Milk of Magnesia, Dulcolax, or Miralax from a local pharmacy, and taking it as instructed. Call our clinic if any questions. Nerve block The anesthesia team sometimes places a nerve block to help with post-operative pain control. This results in significant numbness and inability to move the extremity. The nerve block usually wears off in 8-12 hours, but sometimes can last up to 24 hours. Please call our office if you are still unable to move your extremity after 24 hours, unless you received a pain pump to take home. Nerve blocks typically wear off quickly, so start taking pain medication as soon as you start feeling soreness near your surgical site. Weight bearing and Range of Motion. Do not bear any weight through your operative extremity immediately after surgery. If you had upper extremity surgery, do not lift anything with that arm. If you are in a knee brace, keep it locked in place until your follow-up. We will discuss your weight bearing, range of motion, and lifting restrictions in detail at your first post-operative appointment. Continuous Passive Motion (CPM) Machine If you were prescribed a CPM machine, it will start after your first post- operative appointment, at which time we will give you instructions on the range of motion settings and duration of treatment Physical therapy You will be given a prescription for physical therapy or occupational therapy at your first post-operative appointment. Typically, patients start therapy within 1 week of surgery Wound care and showering We will inspect your wound at your first post-operative visit, and may do a dressing change at that time. Most patients will be in a water-proof dressing that is removed 14 days after surgery. It is normal to see some dried blood on the dressing. Do not remove your dressing, paper strips or sutures yourself unless you are given permission. Showering is allowed the day after surgery. Do not scrub or remove any dressings. The wound should not be submerged underwater (i.e. in a bathtub or pool) until 4 weeks after surgery YOANNA stockings If you were given white stockings, these are to be worn at all times except to shower (on both legs) for the first 2 weeks after surgery. Driving You may not drive while taking narcotic pain medication or while in a cast, splint, sling or brace. You, the patient, need to make the final determination about when you are safe to drive, however, the earliest you may consider driving after surgery is below: Hand/Wrist/Elbow Surgery: 3 days Shoulder Surgery: 2 weeks Hip,/Knee/Ankle Surgery: 4 weeks Fracture repair: 6 weeks Return to Work Your return to work depends on what surgery was done and what type of work you do. Please bring any paperwork your employer needs completed to your first post-operative visit. Also, bring a description of your job duties, as this helps us to understand what risks you may face at work. Travel Avoid long distance travel (greater than 1 hour) in airplanes and cars for the first 6 weeks after surgery. If you must travel, you need to have a Doppler ultrasound done before you travel to rule out a blood clot in your legs. Follow-up You should have a follow-up appointment already scheduled 1-2 days after surgery. If not, please contact our office to make this appointment before you leave the hospital. When to call the office It is normal to have swelling and bruising in the limb that was operated on. This will improve with time. It is also normal to have fevers for the first 2 days after surgery. Reasons you should call your doctor include: Uncontrolled pain; Nausea, vomiting, or constipation that does not improve with medication; Fevers over 101.5, chills, sweats; Drainage or bleeding from the wound; Foul odor; Spreading areas of redness; Any other concerns. Contact Information Please call Dr. Sauer's office at [phone] with any concerns. Pending Studies at Discharge: No Stand-Alone Forms: [facility] Medications and DC Order Prescriptions: New aspirin 81 mg Tablet,Delayed Release (Dr/Ec) 81 mg PO BID 30 Days Qty: 60 0RF tramadol 50 mg Tablet 50 - 100 mg PO Q4H PRN (Reason: Postoperative pain control) Qty: 28 0RF acetaminophen [Tylenol Extra Strength] 500 mg Tablet 1,000 mg PO Q8 30 Days Qty: 180 0RF diclofenac sodium 75 mg tablet,delayed release (DR/EC) 75 mg PO BID 30 Days Qty: 60 1RF Continued coenzyme Q10 [CoQ-10] 100 mg capsule 100 mg PO QAM ascorbic acid (vitamin C) [Vitamin C] 1,000 mg Tablet 1 g PO QAM calcium carbonate 500 mg calcium (1,250 mg) Tablet 1,000 mg PO QAM zinc 50 mg Tablet 50 mg PO QAM magnesium 250 mg Tablet 400 mg PO QAM cholecalciferol (vitamin D3) [Vitamin D3] 125 mcg (5,000 unit) Tablet 5,000 unit PO QAM vitamin K2 100 mcg Capsule 100 mcg PO QAM spironolactone 25 mg Tablet 25 mg PO QAM levothyroxine 100 mcg Tablet 100 mcg PO QAM omega 9-jah-kno-fish oil 900-1,400 mg Capsule,Delayed Release(Dr/Ec) 1 cap PO QAM Probiotic 10 billion cell Capsule 10,000 mmu cells PO DAILY Women's Multivitamin 18 mg-400 mcg- 500 mg-50 mcg Tablet 1 tab PO QAM Igor Support 1 tab PO DAILY vitamin A 1 tab PO DAILY Discharge Orders: Discharge Order (Routine); Ordered 02/10/25 Ordered By: Cristobal Mack Admission Data Admit Date/Time: 02/09/25 12:15 Attending Provider: Nahun Sauer Admit Provider: Nahun Sauer Primary Care Provider: Jaclyn Aponte
[2025-02-10 13:14] VITALS: BP 103/73; PULSE 72; TEMP 98.1; O2SAT 97
[2025-02-10] MEDS ORDERED: CeleBREX 200 MG CAP PO SCH (21:00)
[2025-02-12] MEDS ORDERED: Scopolamine REMOVE TRANSDERM PATCH ONE (08:00)
== END 2025-02-10 13:00 | disposition home or self-care (01) | DRG 470 ==
LOC: ASU 08:08 → 3E 12:15
DX: M81.0 Age-related osteoporosis without current pathological fracture; M16.11 Unilateral primary osteoarthritis, right hip; M85.9 Disorder of bone density and structure, unspecified; Z96.642 Presence of left artificial hip joint; E03.9 Hypothyroidism, unspecified